=== PATIENT | male | born 1965 | race Caucasian/White ===

== ENCOUNTER 2017-07-30 15:45 | Emergency (ER) | payer BC, OTHER ==
[2017-07-30] MEDS ORDERED: PROMETHAZINE HCL 25 MG/ML AMPUL IM ONE (16:11)
[2017-07-30] MEDS ORDERED: diphenhydrAMINE HCL 50 MG/ML VIAL IM ONE (16:11)
[2017-07-30] MEDS ORDERED: diphenhydrAMINE HCL 50 MG/ML VIAL ONE (16:19)
[2017-07-30] MEDS ORDERED: PROMETHAZINE HCL 25 MG/ML AMPUL ONE (16:19)
--- NOTE | 2017-07-30 17:44 | ERNOTE ---
Headache ER HPI - Narrative Date of Service: 07/30/17 - General Presenting Symptoms: headache Time Seen by Provider: 07/30/17 15:57 Source: patient Exam Limitations: no limitations - Immun/Allergies/Home Medications Immunizations: IMMUNIZATION HX Immunizations Up to Date Yes History of Influenza Vaccine No Allergies/Adverse Reactions: Allergies No Known Allergies Allergy (Unverified 09/27/15 20:49) Home Medications: HOME MEDICATIONS DULoxetine HCL [Cymbalta] 30 mg PO DAILY 07/30/17 [Last Taken Unknown] Gemfibrozil [Lopid] 600 mg PO BID 07/30/17 [Last Taken Unknown] HYDROcodone/ACETAMINOPHEN [Hydrocodon-Acetaminophen 5-325] 1 - 2 tab PO PRN PRN 07/30/17 [Last Taken 07/30/17] Losartan/Hydrochlorothiazide [Losartan-Hctz 50-12.5 mg Tab] 1 each PO 07/30/17 [ Last Taken Unknown] Pravastatin Sodium 40 mg PO 07/30/17 [Last Taken Unknown] - History of Present Illness Narrative: Patient presents to the ED for right sided scalp pain just above and behind his right ear. He localizes this pain with his finger. This started yesterday and feels like a "nerve" pain. No radiation of the pain. No N/T/W. No injury. No vision changes. Nothign makes it better or worse. it waxes and wanes and can be sharp and shooting and inttense at times but is pinpoint in nature. Has never had this before. no fever, no N/V. Activity at onset: other - none Timing of Headache: persistent Context Headache: Absent: CO exposure, tick bite, meningitis exposure, recent head injury < 24 hrs ago, recent head injury > 24 hrs Quality: Present: sharp Severity Maximum: Present: other - can be severe when the pain is sharp. Severity-Currently: Present: moderate Modifying Factors - (Improves): Reports: other - nothing Modifying Factors - (Worsens): Reports: other - nothing Associated Symptoms: Denies: fever/chills, nausea, vomiting, facial pain, weakness, numbness/tingling, vision changes, confusion, loss of consciousness, seizures, neck pain/stiffness Exacerbated by:: Reports: other - nothing Prior Treament: Denies: recently seen Review of Systems - Review of Systems Constitutional: Absent: fever EYE: Absent: vision changes ENT: Absent: ear pain, sore throat Respiratory: Absent: shortness of breath Cardiology: Absent: chest pain Gastrointestinal/Abdominal: Absent: vomiting Musculoskeletal: Present: other - chronic back pain Skin: Absent: rash Neurological: Absent: weakness, numbness, tingling - Patient's Past Medical History Patient History - Medical: Chronic Pain, GERD, Other Patient History - Cardiac/Respiratory: Hypertension Patient History - Cancer: No Hx of Cancer Patient History - Surgical Procedures: No surgical history Patient History - Other: None - Family History Mother Family History - Medical: Family History - Cancer: History Unknown Father Family History - Medical: - Social History Living Situations: home Psych History: No pertinent hx Smoking Status: Former smoker Have you smoked in the past 12 months: No Do you dip or chew tobacco: Yes - Immunizations Immunizations Up to Date: Yes History of Influenza Vaccine: No Physical Exam - Physical Exam General Appearance: Present: alert, no apparent distress Head Exam: Present: normal inspection, no evidence of injury Eye Exam: Normal inspection: bilateral, PERRL: bilateral, EOMI: bilateral Ears, Nose, Throat: Present: normal ENT inspection, other - no temporal artery tenderness.. Absent: abnormal TM (R), abnormal TM (L), nasal congestion, sinus pain/drainage, pharyngeal erythema, pharyngeal swelling, tonsillar swelling, dry mucous membranes Neck: Present: normal inspection, nontender, supple, full range of motion Respiratory: Present: no respiratory distress, normal breath sounds, lungs clear Cardiovascular/Chest: Present: regular rate, rhythm Gastrointestinal/Abdominal: Present: normal bowel sounds, nontender, soft Back Exam: Present: normal range of motion Extremity Exam: Present: normal inspection Neurological Exam: Present: alert, normal mood/affect, no motor/sensory deficits , certified medical dosimetrist II-XII nml as tested, normal cerebellar test. Absent: facial droop, motor weakness, disoriented to person Skin Exam: Present: normal color, warm/dry. Absent: skin rash ED Progress - Vital Signs Patient's Vital Signs:: I have reviewed the patient's vital signs. Vital Signs: Vital Signs 07/30/17 16:00 Temperature 36.7 C Pulse Rate 76 Respiratory 16 Rate Blood Pressure 172/108 O2 Sat by Pulse 99 Oximetry - CT/Ultrasound CT/Ultrasound Narrative: I reviewed official radiology report - head CT - Progress/Reassessment Chief Complaint: Headache Progress Note-Subjective: 07/30/17 17:[address] negative. Clinically very unlikely top be SAH. No scalp lesions or infection noted. no temporal artery tenderness. No other clear etiology noted by exam, history or HCT. Given the pain can occasionally be severe I discussed further testing with him. he declines additional testing including lumbar puncture. he understands risks and benefits, declines further eval. I discussed warning signs and reasons to return as well as the need for close f/u. Departure Clinical Impression: Headache - Departure Disposition: Home self-care Condition: Stable Additional Instructions: Rest. Fluids. Keep your appointment with your doctor on Wednesday for a re- check. Return here if you change your mind about having the additional testing that I offered you, including a lumbar puncture, or if you develop fever, numbness, tingling, weakness or if your condition worsens or changes in any way. Referrals: Eren Pardo MD [Primary Care Provider] -
[2017-07-30 21:46] VITALS: BP 138/86
== END 2017-07-30 17:40 | disposition home or self-care (01) ==
LOC: ER 15:45
DX: R51 Headache (principal); G89.29 Other chronic pain; K21.9 Gastro-esophageal reflux disease without esophagitis; I10 Essential (primary) hypertension; Z72.0 Tobacco use